=== PATIENT | female | born 1970 | race American Indian/Alaskan Native ===

== ENCOUNTER 2019-01-07 10:32 | Emergency (ER) | payer SELFPAY ==
[2019-01-07] MEDS ORDERED: GEODON IM ONE (10:35)
[2019-01-07] MEDS ORDERED: WATER FOR INJ (PF) ONE (11:01)
[2019-01-07 11:05] LABS: Basophils # (Auto) 0.1 K/mm3 (0.0-0.1); Basophils % (Auto) 0.9 % (0.0-1.8); Eosinophils # (Auto) 0.3 K/mm3 (0.0-0.4); Hematocrit 35.1 % (30.3-42.9); Hemoglobin 11.4 gm/dl (10.1-14.3); Lymphocytes # (Auto) 1.5 K/mm3 (1.2-5.4); Lymphocytes % (Auto) 17.9 % (13.4-35.0); Mean Corpuscular HGB Conc 32 % (30-34); Mean Corpuscular Volume 85 fl (79-97); Monocytes # (Auto) 0.8 K/mm3 (0.0-0.8); Monocytes % (Auto) 9.6 % (0.0-7.3); Platelet Count 397 K/mm3 (140-440); Red Blood Count 4.13 M/mm3 (3.65-5.03); Red Cell Distribution Width 16.1 % (13.2-15.2)
--- NOTE | 2019-01-07 11:31 | Emergency Department Report ---
ED Psych HPI - General Chief Complaint: Psych Stated Complaint: MH EVAL Time Seen by Provider: 01/07/19 10:33 Source: patient, family Mode of arrival: Ambulatory - History of Present Illness Initial Comments: Patient is a 48-year-old female with a past medical history bipolar disorder who is presenting with her parents for agitated behavior. Patient's has not been taking her medications for bipolar disorder and the patient is at home yelling and acting aggressively. Patient yelling hyper jehovah's witness delusions. Patient is not having any thoughts of homicidal or suicidal however she is showing severely erratic behavior. There is no history of recent head trauma fevers chills nausea vomiting. - Related Data Allergies Allergy/AdvReac Type Severity Reaction Status Date / Time Penicillins Allergy Unknown Verified 01/07/19 10:38 ED Review of Systems ROS: Stated complaint: MH EVAL Other details as noted in HPI Comment: All other systems reviewed and negative ED Past Medical Hx - Past Medical History Previous Medical History?: Yes Hx Hypertension: Yes Hx Psychiatric Treatment: Yes (Bipolar) - Surgical History Past Surgical History?: No - Social History Smoking Status: Never Smoker Substance Use Type: Alcohol ED Physical Exam - General Limitations: Altered Mental Status General appearance: alert, anxious, in distress - Head Head exam: Present: atraumatic, normocephalic - Eye Eye exam: Present: normal appearance, PERRL, EOMI - ENT ENT exam: Present: mucous membranes moist - Neck Neck exam: Present: normal inspection - Respiratory Respiratory exam: Present: normal lung sounds bilaterally. Absent: respiratory distress, wheezes, rales, rhonchi - Cardiovascular Cardiovascular Exam: Present: regular rate, normal rhythm. Absent: systolic murmur, diastolic murmur, rubs, gallop - GI/Abdominal GI/Abdominal exam: Present: soft, normal bowel sounds. Absent: distended, tenderness, guarding, rebound, rigid - Extremities Exam Extremities exam: Present: normal inspection - Back Exam Back exam: Present: normal inspection - Neurological Exam Neurological exam: Present: alert, altered - Psychiatric Psychiatric exam: Present: normal affect, agitated, manic - Skin Skin exam: Present: warm, dry, intact, normal color. Absent: rash ED Course Vital Signs 01/07/19 01/07/19 11:02 11:04 Temperature 98.3 F Pulse Rate 93 H Respiratory 18 18 Rate Blood Pressure 102/68 [Left] O2 Sat by Pulse 99 99 Oximetry - Reevaluation(s) Reevaluation #1: 01/07/19 13:25 Patient is medically cleared for psychiatric treatment at this time. ED Medical Decision Making - Lab Data Result diagrams: 01/07/19 10:44 01/07/19 10:44 Critical care attestation.: If time is entered above; I have spent that time in minutes in the direct care of this critically ill patient, excluding procedure time. ED Disposition Clinical Impression: Encounter for psychiatric assessment Disposition: [id number]/TX-[id number] PSY HOSP/PSY UNIT Is pt being admited?: No Does the pt Need Aspirin: No Condition: Stable Time of Disposition: 13:26
[2019-01-07 12:27] LABS: BUN/Creatinine Ratio 17; Blood Urea Nitrogen 10 mg/dL (7-17); Calcium 9.8 mg/dL (8.4-10.2); Hemolysis Index 14
[2019-01-07] MEDS ORDERED: BENADRYL IM ONE (18:17)
[2019-01-07] MEDS ORDERED: BENADRYL ONE (18:17)
[2019-01-07] MEDS ORDERED: HALDOL ONE (18:17)
[2019-01-07] MEDS ORDERED: ATIVAN IM ONE (18:17)
[2019-01-07] MEDS ORDERED: HALDOL IM ONE (18:17)
[2019-01-07] MEDS ORDERED: ATIVAN ONE (18:17)
[2019-01-08] MEDS ORDERED: GEODON IM ONE ×3 (09:47→14:08)
[2019-01-08 12:14] LABS: Bilirubin,Urine NEG (Negative); Blood,Urine NEG (Negative); Color,Urine Yellow (Yellow); Mucus,Urine FEW /HPF
[2019-01-08 12:23] LABS: Amphetamine Screen,Urine PRESUMPTIVE NEGATIVE; Benzodiazepines Screen,Urine PRESUMPTIVE NEGATIVE; Cocaine Screen,Urine PRESUMPTIVE NEGATIVE; Methadone Screen,Urine PRESUMPTIVE NEGATIVE; Opiate Screen,Urine PRESUMPTIVE NEGATIVE
[2019-01-08 12:43] LABS: Cannabinoid Screen,Urine PRESUMPTIVE POSITIVE
--- NOTE | 2019-01-08 13:29 | Consultation ---
History of Present Illness - Reason for Consult Consult date: 01/08/19 Reason for consult: Mental Health Evaluation Requesting physician: ALAINA CORDON - Chief Complaint Chief complaint: "I don't need to be here" - History of Present Psychiatric Illness 48 y.o. AA female who presented to the ER for bizarre/combative behavior. Today the patient is irritable during the assessment. She stated that she was escorted to the ER by her parents and the police for an unknown reason. She stated that "God" will work it out. Throughout the interview, the patient reference God or [place] several times. She stated that she took psy medications, but feel like it was unnecessary. She is adamant that she does not have a mental illness. She stated that she hear all types of voices, especially from God himself. She was asked about her sleep, she stated, "I don't need sleep at this time." She denies SI/HI's and VH's. She denies a poor appetite, recreational drug use, and alcohol consumption (etoh). Medications and Allergies Allergies Allergy/AdvReac Type Severity Reaction Status Date / Time Penicillins Allergy Unknown Verified 01/07/19 10:38 Home Medications Medication Instructions Recorded Confirmed Last Taken Type Unobtainable 01/08/19 01/08/19 Unknown History Past psychiatric history - Past Medical History Past Medical History: No medical history Past Surgical History: No surgical history - past Psychiatric treatment and history psychiatric treatment history: inpatient psy settings in the past per the patient. Denies a fam psy hx. - Social History Social history: lives with family Mental Status Exam - Vital signs Last Vital Signs Temp 97.9 F 01/08/19 08:00 Pulse 75 01/08/19 08:00 Resp 17 01/08/19 08:00 BP 91/63 01/08/19 08:00 Pulse Ox 100 01/08/19 08:00 - Exam Narrative exam: MSE: Appearance: in hospital attire Behavior: regular eye contact Speech: hyper verbal Mood: irritable Affect: congruent to mood Thought Process: tangential Thought Content: denies SI/HI's and VH's, delusional Motor Activity: ambulatory Cognition: A/O x3 Insight: poor Judgment: poor Results Result Diagrams: 01/07/19 10:44 01/07/19 10:44 Abnormal lab results 01/08/19 Range/Units 02:52 Ur Specific [place] 1.035 H (1.003-1.030) All other labs normal. Assessment and Plan Assessment and plan: Impression: Bipolar DO with psychosis. The patient is manic. Today the patient is irritable during the assessment. UDS is negative. DDx: Schiziaffective DO Recommendation/Plan: Continue 1013 and start Zyprexa 5 mg PO HS for psy chosis/mood and Depakote 500 mg PO BID for mood. Attempted to discuss possible metabolic side effects of Zyprexa with the patient. Dispo: The patient was referred to inpatient psy services. [facility] staff with Dr Bernabe Seo.
[2019-01-08] MEDS ORDERED: BENADRYL IM ONE (14:10)
[2019-01-08] MEDS ORDERED: HALDOL IM ONE (14:10)
[2019-01-08] MEDS ORDERED: ATIVAN IM ONE (14:11)
[2019-01-08 14:22] LABS: Alanine Aminotransferase 8 units/L (7-56)
[2019-01-09] MEDS ORDERED: GEODON IM ONE (12:17)
--- NOTE | 2019-01-09 18:13 | Progress Note ---
Subjective - Reason for Consult Consult date: 01/09/19 Reason for consult: follow up - Chief Complaint Chief complaint: "I'm sad." 48 y.o. AA female who presented to the ER for bizarre/combative behavior. She stated that she was escorted to the ER by her parents and the police for an unknown reason. She states she was recently at the [facility] and that is why she is at . She was recently taken off lithium for unknown reasons. She reports a history of bipolar disorder. 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 She plans to return to working when she is stable. She denies SI/HI. She is displaying appropriate behavior. She states she is sad because she in the hospital. No delusional thought content elicited. Mental Status Exam - Vital signs Last Vital Signs Temp 97.8 F 01/09/19 15:20 Pulse 79 01/09/19 15:20 Resp 18 01/09/19 15:20 BP 120/87 01/09/19 15:20 Pulse Ox 98 01/09/19 15:20 - Exam Narrative exam: Appearance: in hospital attire Behavior: regular eye contact Speech: regular rate and rhythm Mood: "sad" Affect: constricted Thought Process: logical Thought Content: denies SI/HI, no delusional thought content elicited Motor Activity: ambulatory Cognition: A/O x3 Insight: fair Judgment: poor Assessment and Plan Impression: Bipolar DO with psychosis. The patient is manic. She is calm, cooperative, and forthcoming about her psychiatric history. She has an outpatient psychiatrist. She does not remember how she was when she arrived. DDx: Schizoffective DO Recommendation/Plan: Continue 1013 and start Zyprexa 5 mg PO HS for psychosis/mood and Depakote 500 mg PO BID for mood. Attempted to discuss possible metabolic side effects of Zyprexa with the patient. Dispo: The patient was referred to inpatient psy services. [facility] staff with Dr Bernabe Seo.
[2019-01-10] MEDS ORDERED: XANAX ONE (00:37)
[2019-01-10] MEDS ORDERED: XANAX PO ONE (00:38)
--- NOTE | 2019-01-10 13:28 | Progress Note ---
Subjective - Reason for Consult Consult date: 01/10/19 Reason for consult: Psychiatric Follow-up Evaluation - Chief Complaint Chief complaint: "wonderful" Patient is a 48 y.o. AA female who presented to the ER for bizarre/combative behavior. Today the patient is calm and cooperative during the assessment. She reports appropriate mood, appetite, and sleep. She reports medication compliance. She denies any side effects of medication. Also, patient denies SI/HI's, A/VH's, and delusions. Mental Status Exam - Vital signs Last Vital Signs Temp 98.1 F 01/10/19 08:29 Pulse 63 01/10/19 08:29 Resp 18 01/10/19 08:29 BP 104/81 01/10/19 08:29 Pulse Ox 100 01/10/19 08:29 - Exam Narrative exam: Mental Status Exam Appearance: in hospital attire Behavior: regular eye contact Speech: regular tone and regular rate Mood: " wonderful" Affect: congruent to mood Thought Process: tangential-less, more organized Thought Content: denies SI/HI's and VH's, delusional Motor Activity: ambulatory Cognition: A/O x 3 Insight: variable Judgment: variable Assessment and Plan Impression: Bipolar DO with psychosis. The patient is manic. Today the patient is calm and cooperative during the assessment. UDS is negative. DDx: Schiziaffective DO Recommendation/Plan: 1. Continue 1013. 2. Continue Zyprexa 5 mg PO HS for psychosis/mood and Depakote 500 mg PO BID for mood. Attempted to discuss possible metabolic side effects of Zyprexa with the patient. 3. Will attempt to gain collateral. Per patient's verbal consent, provider may contact pt's mother [phone]. Disposition: The patient was referred to inpatient psychiatric services. Will reevaluate 1013 in 24 hours. If 1013 is rescinded patient will follow-up at the [facility] on an outpatient basis. Will staff with Dr. Bernabe Seo.
--- NOTE | 2019-01-11 10:46 | Progress Note ---
Subjective - Reason for Consult Consult date: 01/11/19 Reason for consult: Pscychiatry Follow-up - Chief Complaint Chief complaint: "I feel so rested" Patient is a 48 y.o. AA female who presented to the ER for bizarre/combative behavior. Today the patient is calm and cooperative during the assessment. She stated that she got "plenty of rest" since being in the ER. She stated that she daniels to follow up with [facility] for outpatient psy services. She denies SI/HI's and AVH's. She denies any side effects of medications. Mental Status Exam - Vital signs Last Vital Signs Temp 97.8 F 01/11/19 08:15 Pulse 65 01/11/19 08:15 Resp 18 01/11/19 08:15 BP 126/83 01/11/19 08:15 Pulse Ox 100 01/11/19 08:15 - Exam Narrative exam: MSE: Appearance: calm, cooperative Behavior: regular eye contact Speech: regular rate and tone Mood: "much better" Affect: congruent to mood Thought Process: linear Thought Content: denies SI/HI's and AVH's Motor Activity: ambulatory Cognition: A/O x3 Insight: appropriate Judgment: appropriate Assessment and Plan Impression: Bipolar DO with psychosis. Today the patient is calm and cooperative during the assessment. The patient's psychosis/clive has resolved. DDx: Schiziaffective DO Recommendation/Plan: Rescind 1013. Continue Zyprexa 5 mg PO HS for psychosis/mood and Depakote 500 mg PO BID for mood. Discussed possible metabolic side effects of Zyprexa with the patient. Dispo: The patient can follow up with [facility] for outpatient psy services. [facility] staff with Dr Bernabe Seo.
[2019-01-12 17:55] VITALS: BP 126/83
== END 2019-01-11 12:52 ==
LOC: EEVIPCON 10:32 → ED 10:32
DX: F31.2 Bipolar disorder, current episode manic severe with psychotic features (principal); I10 Essential (primary) hypertension; Z88.0 Allergy status to penicillin
CPT/HCPCS: 36415; 80048; 80164; 80307; 81001; 82150; 83690; 84075; 84450; 84460; 84703; 85025; 96372; 99284; G0480; J1200; J1630; J2060; J3486; 80320